=== PATIENT | female | born 1940 ===

== ENCOUNTER 2017-06-21 08:45 | Inpatient (IN) | payer OTHER ==
[~2017-06-21] VITALS: Ht 154.9 cm; Wt 78.0 kg
[~2017-06-21 08:45] MED LIST: CATAFLAM50 MG PO; COZAAR100 MG PO; GABAPENTIN100 MG PO; INTEGRA PLUS CAPSULE PO; OXYC1TAB9 PO; PROPAFENONE HC150 MG PO; RYBIX ODT50 MG PO; XARELTO 10MG PO
[2017-06-21] MEDS ORDERED: CLOPIDOGREL BIS75 MG (10:08)
[2017-06-21] MEDS ORDERED: PLAVIX75 MG PO (10:35)
[2017-07-05] MEDS ORDERED: INTEGRA PLUS C1 EACH PO (08:19)
[2017-07-05] MEDS ORDERED: OXYC1TAB9 PO (08:19)
[2017-07-05] MEDS ORDERED: XARELTO10 MG PO (08:19)
== END 2017-07-05 15:56 | DRG 470 ==
LOC: O/R 07-02 07:02 → SURH 07-02 07:02
PROVIDERS: Orthopaedic Surgery Sports Medicine
PROC: 0SRB0JZ Replacement of Left Hip Joint with Synthetic Substitute, Open Approach (ICD-10-PCS; principal; 2017-07-02 12:00)
PROC: B54DZZZ Ultrasonography of Bilateral Lower Extremity Veins (ICD-10-PCS; 2017-07-03)
PROC: 30233N1 Transfusion of Nonautologous Red Blood Cells into Peripheral Vein, Percutaneous Approach (ICD-10-PCS; 2017-07-04)
DX: M16.12 Unilateral primary osteoarthritis, left hip (principal); D62 Acute posthemorrhagic anemia

== ENCOUNTER 2017-07-22 01:22 | Emergency (ER) | payer OTHER ==
[~2017-07-22] VITALS: Ht 154.9 cm; Wt 75.7 kg
[~2017-07-22 01:22] MED LIST changes: +CLOPIDOGREL BIS75 MG; +INTEGRA PLUS C1 EACH PO; +PLAVIX75 MG PO; +XARELTO10 MG PO
[2017-07-22] MEDS ORDERED: COREG CR10 MG (01:42)
[2017-07-22] MEDS ORDERED: LIPITOR40 MG (01:43)
[2017-07-22] MEDS ORDERED: RYTHMOL SR225 MG (01:43)
== END 2017-07-22 04:47 | disposition home or self-care (01) ==
LOC: ER 01:22
DX: M25.552 Pain in left hip (principal); L53.8 Other specified erythematous conditions; T84.84XS Pain due to internal orthopedic prosthetic devices, implants and grafts, sequela

== ENCOUNTER 2017-08-31 06:59 | Inpatient (IN) | payer OTHER ==
[~2017-08-31] VITALS: Ht 154.9 cm; Wt 72.6 kg
[~2017-08-31 06:59] MED LIST changes: +COREG CR10 MG; +LIPITOR40 MG; +RYTHMOL SR225 MG
== END 2017-09-06 18:03 | disposition designated cancer center or children's hospital (05) | DRG 602 ==
LOC: ER 06:59 → SURH 08:45 → SEC-K 08:45 → MEDI 15:01 → SURH 15:01
PROC: 0J9M3ZX Drainage of Left Upper Leg Subcutaneous Tissue and Fascia, Percutaneous Approach, Diagnostic (ICD-10-PCS; principal; 2017-08-31)
PROC: B246ZZZ Ultrasonography of Right and Left Heart (ICD-10-PCS; 2017-09-05)
PROC: 4A12X4Z Monitoring of Cardiac Electrical Activity, External Approach (ICD-10-PCS; 2017-09-05)
DX: L02.416 Cutaneous abscess of left lower limb (principal); I21.4 Non-ST elevation (NSTEMI) myocardial infarction; T81.4XXA Infection following a procedure, initial encounter; I97.191 Other postprocedural cardiac functional disturbances following other surgery; Y83.8 Other surgical procedures as the cause of abnormal reaction of the patient, or of later complication, without mention of misadventure at the time of the procedure; Y92.098 Other place in other non-institutional residence as the place of occurrence of the external cause; M16.12 Unilateral primary osteoarthritis, left hip; B95.62 Methicillin resistant Staphylococcus aureus infection as the cause of diseases classified elsewhere